=== PATIENT | male | born 1965 | race Caucasian/White ===

== ENCOUNTER 2023-10-27 17:12 | Emergency (ER) | payer MEDICAID, SELFPAY ==
[2023-10-27] VITALS (8 sets, daily range): BP systolic 82–129; BP diastolic 55–84; PULSE 82–115; RESP 11–21; TEMP 35.5; O2SAT 92–98; BMI 28.0
--- NOTE | 2023-10-27 18:20 | EDS_ITS ---
HPI History of Present Illness Chief Complaint: Hypotension Informant: patient Narrative Narrative: Patient is a 58-year-old male with history of diabetes presenting with a syncopal episode. Patient was at the [facility] when he started feel lightheaded and he sat down. He was seen in the chair and the next thing he know he woke up with everyone around him and people poking him. He states he said prior episodes of syncope before but is been associate with low blood sugar and usually he gets sweaty with that. He denies any history of low blood pressure. He notes he has been feeling weak and lightheaded for the past few days. He had a mild cough. He is feeling mildly short of breath. Denies any fever or chest pain. Denies any GI or symptoms. Has a history of a diabetic foot ulcer on his right foot but is not currently having any wound changes. States he has not been taking his insulin regularly and reports that he has been very depressed and his mother . He states he wishes he was with her but states he is not can do anything to harm himself. No other complaints or concerns reported at this time. Lives home alone but does have a niece who lives in the area states he has not talked to her in 1 month. Feels that he is drinking a lot of water but is worried that he could be dehydrated. [facility] Medical History Diabetes Home Medications ?Medication ?Instructions ?Recorded ?Last Taken ?Type albuterol sulfate 90 mcg/actuation 2 puff inhalation Q4H PRN PRN 10/27/23 Unknown History aerosol inhaler wheezing fenofibrate nanocrystallized 145 145 mg PO DAILY 10/27/23 Unknown History mg tablet insulin glargine 100 unit/mL (3 20 unit subcut ACHS 10/27/23 Unknown History mL) subcutaneous pen (Lantus Solostar U-100 Insulin) insulin lispro 100 unit/mL 7 unit subcut TID 10/27/23 Unknown History subcutaneous pen rosuvastatin 10 mg tablet 10 mg PO QHS 10/27/23 Unknown History Allergy/AdvReac Type Severity Reaction Status Date / Time No Known Allergies Allergy Verified 10/27/23 17:13 Family History unable to obtain Surgical History no surgical history Social History Smoking Status: Never smoker ROS ROS ED Constitutional Constitutional ED: Reports other Details: Syncope, lightheaded ; Denies chills, fever(s) or sweats Eyes Eyes: Denies change in vision Cardiovascular Cardiovascular: Denies chest pain Respiratory/Chest Respiratory/Chest: Reports cough and dyspnea Gastrointestinal Gastrointestinal: Denies abdominal pain, nausea or vomiting Musculoskeletal Musculoskeletal: Denies arthralgias or myalgias Integumentary Denies rash Neurologic Neurologic: Reports weakness; Denies headache(s) or paresthesias EXAM Physical Exam Const Vital Signs: 10/27/23 17:13 10/27/23 17:22 10/27/23 18:12 Temperature 96 F L Temperature Source Axillary Pulse Rate 88 92 Pulse Rate [Lying] Pulse Rate [Sitting (for 1 minute prior to obtaining)] Pulse Rate [Standing (for 1 minute prior to obtaining)] Respiratory Rate 21 H 11 L Respiratory Effort Normal Respiratory Pattern Normal Blood Pressure 93/60 100/70 Blood Pressure [Lying] Blood Pressure [Sitting (for 1 minute prior to obtaining)] Blood Pressure [Standing (for 1 minute prior to obtaining)] Blood Pressure Mean 71 80 Blood Pressure Mean [Lying] Blood Pressure Mean [Sitting (for 1 minute prior to obtaining)] Blood Pressure Mean [Standing (for 1 minute prior to obtaining)] Pulse Ox 98 95 Oxygen Delivery Method Room Air Room Air 10/27/23 19:00 10/27/23 19:55 10/27/23 20:00 Temperature Temperature Source Pulse Rate 92 97 Pulse Rate [Lying] 103 H Pulse Rate [Sitting (for 1 minute prior to obtaining)] 107 H Pulse Rate [Standing (for 1 minute prior to obtaining)] 115 H Respiratory Rate 14 12 Respiratory Effort Respiratory Pattern Blood Pressure 124/77 H 106/72 Blood Pressure [Lying] 114/68 Blood Pressure [Sitting (for 1 minute prior to obtaining)] 106/72 Blood Pressure [Standing (for 1 minute prior to obtaining)] 82/55 L Blood Pressure Mean 92 83 Blood Pressure Mean [Lying] 83 Blood Pressure Mean [Sitting (for 1 minute prior to obtaining)] 83 Blood Pressure Mean [Standing (for 1 minute prior to obtaining)] 64 Pulse Ox 95 95 Oxygen Delivery Method Room Air Room Air 10/27/23 21:00 10/27/23 22:00 10/27/23 23:00 Temperature Temperature Source Pulse Rate 82 86 93 Pulse Rate [Lying] Pulse Rate [Sitting (for 1 minute prior to obtaining)] Pulse Rate [Standing (for 1 minute prior to obtaining)] Respiratory Rate 16 17 12 Respiratory Effort Respiratory Pattern Blood Pressure 129/83 H 127/84 H 124/76 H Blood Pressure [Lying] Blood Pressure [Sitting (for 1 minute prior to obtaining)] Blood Pressure [Standing (for 1 minute prior to obtaining)] Blood Pressure Mean 98 98 92 Blood Pressure Mean [Lying] Blood Pressure Mean [Sitting (for 1 minute prior to obtaining)] Blood Pressure Mean [Standing (for 1 minute prior to obtaining)] Pulse Ox 97 98 92 Oxygen Delivery Method Room Air Room Air Positive well nourished and well developed General Appearance ED: well developed and NAD; Negative for pallor HEENT Reports moist mucous membranes Eyes PERRL and EOMs intact bilaterally Neck supple and no JVD Chest Wall inspection of chest normal Resp normal respiratory effort and clear to auscultation bilaterally Cardio regular rate, regular rhythm and no murmurs GI normal to inspection, nondistended, normoactive bowel sounds and non-tender Extremity normal to inspection General Extremety ED: Negative for edema or tenderness General Extremity: Negative for edema Neuro oriented x3 and no sensory deficits noted Sensorium / Orientation: alert Motor Exam: strength 5/5 throughout; Negative for general weakness Psych mental status grossly normal Psych Narrative: Denies HI or SI. States he would not do anything to harm himself. Mood & Affect: depressed and tearful Skin no rashes or lesions noted and no wounds General Skin Exam: Negative for pallor MDM MDM MDM Narrative Medical decision making narrative: Patient evaluated after syncopal episode. He was hypotensive for EMS. Blood pressures improving in the ER and patient is receiving IV fluids. Will obtain workup looking for the cause of his syncope. Differential includes is not limited to ACS, arrhythmia, hypovolemia, DKA/HHNK, DOROTHY, dehydration, symptomatic anemia and pulmonary emboli. Patient's lab work is largely normal. His glucose is normal and at 74. I spoke with the patient's niece who states that patient has a learning disability and operates out about the function of a 15-year-old however he was never given a formal diagnosis because of concern of stigma when he was younger. She states that since his mother he has not been doing as well. She notes that he is consistently pretty noncompliant with his medications and also suspects that he gives himself too much insulin sometimes causing episodes of hypoglycemia. Patient's high sensitive troponin is 5. On repeat it is 7. He is orthostatic positive after first liter fluid. Is given a second liter. Urinalysis is consistent with dehydration with 10-25 hyaline cast and there is 1+ bacteria. Will send for culture but low suspicion for urinary tract infection. D-dimer is normal and I have low suspicion for pulmonary emboli. Patient was offered admission for his orthostasis, dehydration and mildly elevated creatinine (I suspect this is near his baseline as his creatinine on 09/24/2021 was 1.35 (reviewed on clinisync) however patient declines. I do feel that patient has capacity at this time to make his medical decisions however I am not sure if it is at his best interest. I will place a case management consult as well to try to get him further outpatient support. Discharged home in stable condition. Has resolution of his hypotension. Lab Data Attestation: I reviewed the patient's lab results. Labs: Laboratory Results - last 24 hr 10/27/23 10/27/23 10/27/23 18:00 18:16 18:30 WBC 10.0 RBC 4.82 Hgb 13.5 Hct 40.7 MCV 84.4 MCH 28.0 MCHC 33.2 RDW Std Deviation 35.8 RDW Coeff of Clarke 11.9 Plt Count 317 MPV 10.6 Immature Gran % (Auto) 0.700 Neut % (Auto) 55.1 Lymph % (Auto) 34.0 [place] % (Auto) 7.7 Eos % (Auto) 1.9 Baso % (Auto) 0.6 Absolute Neuts (auto) 5.5 Absolute Lymphs (auto) 3.41 Nucleated RBC % 0 D-Dimer Quant (PE/DVT) 0.34 Sodium 143 Potassium 3.7 Chloride 110 H Carbon Dioxide 25.0 Anion Gap 8 BUN 30 H Creatinine 1.88 H Estim Creat Clear Calc 46.24 Est GFR (MDRD) Af Amer 48 L Est GFR (MDRD) Non-Af 40 L BUN/Creatinine Ratio 16.0 Glucose 74 Lactic Acid 1.8 Calcium 9.4 Troponin I High Sens 5 Urine Color Urine Clarity Urine pH Ur Specific [place] Urine Protein Urine Glucose (UA) Urine Ketones Urine Occult Blood Urine Nitrite Urine Bilirubin Urine Urobilinogen Ur Leukocyte Esterase Urine RBC Urine WBC Ur Squamous Epith Cells Ur Renal Epithelial Cell Urine Bacteria Hyaline Casts Urine Mucus POC Glucose 91 10/27/23 10/27/23 20:44 22:05 WBC RBC Hgb Hct MCV MCH MCHC RDW Std Deviation RDW Coeff of [place] Plt Count MPV Immature Gran % (Auto) Neut % (Auto) Lymph % (Auto) [place] % (Auto) Eos % (Auto) Baso % (Auto) Absolute Neuts (auto) Absolute Lymphs (auto) Nucleated RBC % D-Dimer Quant (PE/DVT) Sodium Potassium Chloride Carbon Dioxide Anion Gap BUN Creatinine Estim Creat Clear Calc Est GFR (MDRD) Af Amer Est GFR (MDRD) Non-Af BUN/Creatinine Ratio Glucose Lactic Acid Calcium Troponin I High Sens 7 Urine Color Yellow Urine Clarity Sl. Cloudy Urine pH 5.0 Ur Specific [place] 1.020 Urine Protein 30 H Urine Glucose (UA) 1000 H Urine Ketones 5 H Urine Occult Blood 10 H Urine Nitrite Negative Urine Bilirubin Negative Urine Urobilinogen 1 H Ur Leukocyte Esterase Negative Urine RBC 0 SEEN Urine WBC 5-10 SEEN Ur Squamous Epith Cells 0-5 SEEN Ur Renal Epithelial Cell 0-5 SEEN Urine Bacteria 1+ Hyaline Casts 10-25 SEEN Urine Mucus 1+ POC Glucose Radiography Diagnostic Testing: Clinical Impression(s) from Imaging Studies Chest X-Ray 10/27/23 18:32 IMPRESSION: No acute radiographic abnormalities. Electronically Signed: Robles Concepcion MD at 20:34 EDT , Rhythm Strip Rhythm Strip: Sinus Rhythm Rate: 88 Ectopy: None EKG Initial EKG: Attestation: I personally reviewed and interpreted this EKG as follows: Interpretation: Sinus Rhythm Comments: Normal sinus rhythm at a rate of 88 bpm Normal axis Normal intervals Normal ST segments Discharge Plan Triage Chief Complaint: Hypotension ED Provider: Jen Azar Dx/Rx/DC Orders Clinical Impression: Orthostatic hypotension, Dehydration Instructions: ED Hypotension, Orthostatic Prescriptions: No Action albuterol sulfate 90 mcg/actuation HFA aerosol inhaler 2 puff INHALATION Q4H PRN PRN (Reason: wheezing) insulin lispro 100 unit/mL insulin pen 7 unit subcut TID rosuvastatin 10 mg tablet 10 mg PO QHS fenofibrate nanocrystallized 145 mg tablet 145 mg PO DAILY insulin glargine [Lantus Solostar U-100 Insulin] 100 unit/mL (3 mL) insulin pen 20 unit subcut ACHS Primary Care Provider: BARBARA YOUSSEF Referrals: Barbara Youssef [Non-Staff] - Activity Restrictions/Additional Instructions: Please follow-up with your primary care doctor. Make sure you are drinking plenty of fluids. Be careful with taking her insulin that you do not take too much and cause low blood sugar. Your blood sugar was normal today. Your blood pressure was low upon arrival. He required 2 L of IV fluid. Print Language: Maltese Disposition Disposition: Home, Self Care
--- NOTE | 2023-10-27 18:20 | EKG12_ITS ---
Test Reason : Blood Pressure : / mmHG Vent. Rate : 088 BPM Atrial Rate : 088 BPM P-R Int : 136 ms QRS Dur : 086 ms QT Int : 366 ms P-R-T Axes : 040 021 038 degrees QTc Int : 442 ms Normal sinus rhythm Normal ECG Confirmed by MARGOT BUCIO MD ([id number]), editorial project manager DARELL MAYBERRY ([id number]) on 10/30/2023 6:50:21 AM Referred By: Confirmed By:MARGOT BUCIO MD
--- NOTE | 2023-10-27 18:22 | NURSING ---
NO OLD EKGS
[2023-10-27 18:31] LABS: Absolute Lymphocyte Count 3.41 X10^3/uL (0.83-4.51); Absolute Neutrophil Count 5.5 X10^3/uL (2.0-7.7); Basophil# 0.06 X10^3/uL; Basophil% 0.6 % (0-1); Eosinophil# 0.19 X10^3/uL; Eosinophils% 1.9 % (0-5); Hematocrit 40.7 % (40-54); Hemoglobin 13.5 g/dL (13.0-16.5); Lymphocyte # 3.41 X10^3/ul (0.83-4.51); Mean Corp Hgb Conc 33.2 g/dL (32-36); Mean Corpuscular Volume 84.4 fL (80-94); Mean Platelet Vol. 10.6 fl (6.2-12.0); Monocyte# 0.77 X10^3/uL; Monocyte% 7.7 % (0-10); NRBC Flagged by Analyzer 0 % (0-5); Neutrophil # 5.54 X10^3/uL (2.7-7.7); Neutrophil % 55.1 % (47-70); Platelet Count 317 K/mm3 (150-450); RBC Distribution Width CV 11.9 % (11.6-14.6); RBC Distribution Width SD 35.8 fl (35.1-43.9); Red Blood Count 4.82 M/mm3 (4.6-6.2)
--- NOTE | 2023-10-27 18:32 | RAD_ITS ---
INDICATION: syncope EXAMINATION/TECHNIQUE: X-RAY - XR Chest 1 View COMPARISON: None. FINDINGS: The lungs are clear. The cardiomediastinal silhouette is unremarkable. No pleural effusion or pneumothorax. No acute osseous abnormalities. RAD/Chest 1 View (Portable) IMPRESSION: No acute radiographic abnormalities. Electronically Signed: Robles Concepcion MD at 20:34 EDT ,
[2023-10-27] MEDS: 0.9% Normal Saline (1000mL) 1,000 ML 1000 ML IV (18:33)
[2023-10-27 18:37] LABS: Bedside Glucose 91 mg/dL (74-106)
[2023-10-27 18:48] LABS: Anion Gap 8 (5-15); BUN 30 mg/dL (7-18); Calcium,Total 9.4 mg/dL (8.5-10.1); Chloride 110 mmol/L (98-107); Creatinine, Serum 1.88 mg/dL (0.70-1.30); EST Glomerular Filtration Rate 40 mL/min (>60); Est Glom Filt Rate - Afr Amer 48 mL/min (>60); Estimated Creatinine Clearance 46.24 ml/min; Glucose 74 mg/dL (74-106); Potassium 3.7 mmol/L (3.5-5.1); Sodium Level 143 mmol/L (136-145); Troponin-I HS (w/2H Reflex) 5 pg/mL (3.0-78.0)
[2023-10-27 19:16] LABS: D-Dimer Quantitative (DVT/PE) 0.34 FEU/ug/m (0.27-0.49)
[2023-10-27 19:21] LABS: Lactic Acid 1.8 mmol/L (0.4-1.9)
[2023-10-27] MEDS: 0.9% Normal Saline (1000mL) 1,000 ML 999 ML IV (20:20)
[2023-10-27 20:24] LABS: Reflex Troponin-HS? (from REC) Y
[2023-10-27 21:11] LABS: Troponin-I HS 7 pg/mL (3.0-78.0)
[2023-10-27 22:12] LABS: Red Blood Cells-Urine 0 SEEN /hpf (0-5)
[2023-10-27 22:13] LABS: Color, Urine Yellow (Yellow); Glucose, Dipstick 1000 mg/dl (Normal); Ketone-Dipstick 5 mg/dl (Negative); Leukocyte Esterase-Dipstick Negative /ul (Negative); Nitrite-Dipstick Negative (Negative); Occult Blood-Urine 10 /ul (Negative); Protein-Dipstick 30 mg/dl (Negative); Urine Bilirubin Dipstick Negative (Negative); Urine Clarity Sl. Cloudy (Clear); Urine Urobilinogen 1 mg/dl (Normal)
[2023-10-27 22:50] LABS: Hyaline Cast 10-25 SEEN /lpf (0-5); Mucous, Urine 1+ /hpf (<or=2+)
[2023-10-27 22:53] LABS: White Blood Cells 5-10 SEEN /hpf (0-5)
[2023-10-27 22:54] LABS: Bacteria 1+ /hpf (None Seen); Renal Epithelial Cells 0-5 SEEN /hpf (0-5); Squamous Epithelial Cells - UA 0-5 SEEN /hpf (0-5)
[2023-10-28] VITALS: BP 137/85; PULSE 97; RESP 17; O2SAT 98
[2023-10-28 00:11] VITALS: BP 137/85; PULSE 94; RESP 12; TEMP 36.4; O2SAT 98
== END 2023-10-28 00:14 | disposition home or self-care (01) ==
PROVIDERS: Emergency Provider Emergency Medicine; PCP Family Medicine; Visit Provider Emergency Medicine
DX: I95.1 Orthostatic hypotension (principal); E11.9 Type 2 diabetes mellitus without complications; Z79.4 Long term (current) use of insulin; E86.0 Dehydration; Z91.148 Patient's other noncompliance with medication regimen for other reason; Z63.4 Disappearance and death of family member
CPT/HCPCS: 71045; 80048; 81001; 82962; 83605; 84484; 85025; 85379; 87086; 87088; 87631; 93005; 96360; 96361; 99285; J7030; A4216